=== PATIENT | male | born 1955 | race Caucasian/White ===

== ENCOUNTER 2018-11-10 16:17 | Emergency (ER) | payer OTHER ==
[2018-11-10] MEDS: BUPIVACAINE HCL 0.5% (5MG/ML) PF 10ML VIAL IJ ONE (17:17)
[2018-11-10 17:30] VITALS: BP 158/97
--- NOTE | 2018-11-10 17:52 | ED Physician Documentation ---
General Adult - HISTORIAN Historian: patient - HPI Stated Complaint: R 3rd Digit Lac Chief Complaint: Laceration/Recheck/Suture Onset: minutes Further Comments: yes (63 year old male patient presents with complaint of right middle finger laceration. 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 Last tetanus unknown.) - ROS CONST: no problems EYES/ENT: none CVS/RESP: none GI/: none MS/SKIN/LYMPH: none NEURO/PSYCH: denies: headache, fainting, dizziness, tingling, numbness, difficulty walking, difficulty with speech, anxiety, depression, other - PAST HX Past History: other (HLD) Allergies/Adverse Reactions: Allergies Allergy/AdvReac Type Severity Reaction Status Date / Time No Known Allergies Allergy Verified 11/10/18 17:00 Home Medications: Ambulatory Orders Medication Instructions Recorded Atorvastatin Calcium 1 tab PO DAILY 11/10/18 Cephalexin [Keflex] 500 mg PO QID #40 capsule 11/10/18 Mupirocin 2% Oint. [Bactroban] 1 appl TP BID #1 tube 11/10/18 - SOCIAL HX Smoking History: non-smoker - FAMILY HX Family History: No - VITAL SIGNS Vital Signs: Vital Signs Temp Pulse Resp BP Pulse Ox 65 15 158/97 93 11/10/18 18:10 11/10/18 18:10 11/10/18 18:10 11/10/18 18:10 - REVIEWED ASSESSMENTS Nursing Assessment Reviewed: Yes Vitals Reviewed: Yes Procedures Wound Location: other (right 3rd digit - palmar aspect) Wound's Depth, Shape: linear Wound Explored: no foreign body removed Irrigated w/ Saline (ccs): 500 Betadine Prep?: No (chlorhexidine) Anesthesia: Other (digital block - marcaine .5%) Wound Repaired With: sutures Suture Size/Type: 5:0 Number of Sutures: 5 Layer Closure?: No Sterile Dressing Applied?: Yes Progress: Wound edges well approximated. Tetanus: given in ER today Patient tolerated procedure well; reviewed discharge instructions - verbalized understanding. ED Results Lab/Radiology - Radiology Radiology Impressions: Three views of the right hand Clinical history injury to the 3rd finger. Findings: Examination right hand in palmar, lateral and oblique views demonstrates degenerative changes with narrowing of the interphalangeal and metacarpophalangeal joints. There is mild narrowing of the radiocarpal and lateral intercarpal joints. Soft tissue injury is seen in the 3rd finger. There is no evident fracture no lytic or blastic lesion. There is no opaque foreign body in the soft tissues. Impression: 1. Soft tissue injury. 2. Degenerative changes. Electronically signed on Nov 10, 2018 5:18:46 PM CDT by: Claudio Lainez - Orders Orders: ED Orders Category Date Time Status HAND 3 VIEWS OR MORE [RAD] Stat Exams 11/10/18 Taken Bupivacaine HCl 0.5% Pf 10Ml [Marcaine 0.5%] Med 11/10/18 16:57 Discontinued 10 mg IJ NOW ONE Diph,Pertuss(Acell),Tet Vac/Pf [Adacel] Med 11/10/18 16:55 Discontinued 0.5 ml IM .ONCE ONE General Adult Physical Exam - PHYSICAL EXAM GENERAL APPEARANCE: mild distress EENT: eye inspection normal, SHARITA RESPIRATORY: no resp distress CVS: reg rate & rhythm SKIN: warm/dry, normal color, other (RIGHT MIDDLE FINGER - LACERATION 2 CM; palmar aspect DIP joint; no tendon visualized. ) EXTREMITIES: non-tender, normal range of motion, no evidence of injury, no edema, other (right 3rd finger - ROM intact at DIP joint) NEURO: oriented X3, CN's nml as tested, motor nml, sensation nml, mood/affect nml Discharge Clincal Impression: Finger laceration Qualifiers: Encounter type: initial encounter Finger: middle finger Damage to nail status: without damage Foreign body presence: without foreign body Laterality: right Qualified Code(s): S61.212A - Laceration without foreign body of right middle finger without damage to nail, initial encounter Prescriptions: Cephalexin [Keflex] 500 mg PO QID #40 capsule Mupirocin 2% Oint. [Bactroban] 1 appl TP BID #1 tube Referrals: Veronica Candelario FNP [Primary Care Provider] - 11/20/18 Additional Instructions: Keep the wound clean and dry until it has healed. You can wash or shower after 24 hours. Do not soak the wound in water and make sure it is dry afterwards (gently pat the area dry with a clean towel). Do not get into a swimming pool, hot tub, [place] or river until your stitches are removed. To remove your dressing, gently pull it off. If needed, you can dampen it with water then gently pull it off. Clean the laceration twice a day with hibiclens and rinse with water clean away any scabbed area Apply thin coat of antibiotic ointment after cleaning the wound. Cover with non-adherent bandage if able. If you have pain, take simple pain relief medication such as Tylenol or ibuprofen. If bandages or dressings get wet, they will need to be changed. Call your doctor for any signs of symptom of infection redness, drainage, pain. Have your stitches removed at your doctors office in 7-10 days. Discharged with bactroban ointment apply a thin coat twice a day. Condition: Stable Disposition: 01 HOME, SELF-CARE Decision to Admit: NO Decision Time: 17:52
[2018-11-10] MEDS: DIPH,PERTUSS(ACELL),TET VAC/PF 0.5 ML DISP.SYRIN IM ONE (18:00)
--- NOTE | 2018-11-10 21:42 | Diagnostic Imaging Report ---
SUMA BUNCH (RAILROAD WHEELS AND AXLE INSPECTOR) - [facility] [id number] [facility].[address] [address] Report Submission Date: Nov 10, 2018 5:18:46 PM CDT Patient Study Name: STACIA GUNN Date: Nov 10, 2018 4:56:01 PM CDT Modality Type: DX Gender: M Description: HAND 3 VIEWS OR MORE : 59 Institution: [facility] Physician: SUMA BUNCH (CHUNG) - ER Three views of the right hand Clinical history injury to the 3rd finger. Findings: Examination right hand in palmar, lateral and oblique views demonstrates degenerative changes with narrowing of the interphalangeal and metacarpophalangeal joints. There is mild narrowing of the radiocarpal and lateral intercarpal joints. Soft tissue injury is seen in the 3rd finger. There is no evident fracture no lytic or blastic lesion. There is no opaque foreign body in the soft tissues. Impression: 1. Soft tissue injury. 2. Degenerative changes. Electronically signed on Nov 10, 2018 5:18:46 PM CDT by: Claudio STORM
== END 2018-11-10 18:10 | disposition home or self-care (01) ==
LOC: ED 16:17
DX: S61.212A Laceration without foreign body of right middle finger without damage to nail, initial encounter (principal); W45.8XXA Other foreign body or object entering through skin, initial encounter; Y93.9 Activity, unspecified; Y92.9 Unspecified place or not applicable
CPT/HCPCS: 12001; 73130; 90471; 90715; 99283; J3490